=== PATIENT | male | born 1950 | race Caucasian/White ===

== ENCOUNTER 2024-10-13 09:38 | Outpatient (AMB) | payer MEDICARE, SELFPAY ==
--- NOTE | 2024-10-13 09:51 | XR_ITS ---
Examination: Bilateral knees 2 views Right lateral knee left lateral knee 2 views Right axial knee left axial knee 2 views TECHNIQUE: Bilateral AP knees standing single view, bilateral PA knees standing single view flexion Standing right lateral knee left lateral knee 2 views Right axial knee left axial knee 2 views total 6 views Date and time: October 13, 2024 1031 hours INDICATIONS: Bilateral knee pain 3 years worse in the left knee, history left knee infections FINDINGS: Prominent osteopenia Severe narrowing [id number] medial joint space left knee Advanced osteoarthritis left patellofemoral joint Moderate narrowing medial joint space right knee Significant osteoarthritis lateral and right patellofemoral joints No fractures IMPRESSION: Severe narrowing [id number] medial joint space left knee Advanced osteoarthritis left patellofemoral joint Moderate narrowing medial joint space right knee Significant osteoarthritis lateral and right patellofemoral joints
--- NOTE | 2024-10-13 09:54 | PD.ORTHCLVIS ---
Vital signs 10/13/24 09:59 Height 1.68 m Height Method Stated Weight 81.873 kg Weight Measurement Method Standing Scale BMI 29.1 BP 152/76 H Blood Pressure Source Automatic Cuff Blood Pressure Location Left Upper Arm Position Sitting Respiration 18 Pulse 64 Pulse Source Monitor Temp 97.3 F Temp Source Temporal Artery Scan Pulse Oximetry (%) 96 Oxygen Delivery Method Room Air Med/Allergies Allergies & Medications Allergies No Known Allergies Allergy (Verified 10/13/24 10:00) Medication Reconciliation acetaminophen 500 mg/15 mL oral liquid 500 mg PO QID PRN 10/13/24 [History Confirmed 10/13/24] aspirin 81 mg tablet 81 mg PO QDAY 10/13/24 [History Confirmed 10/13/24] atorvastatin 80 mg tablet 80 mg PO QDAY 10/13/24 [History Confirmed 10/13/24] clopidogrel 75 mg tablet 75 mg PO QDAY 10/13/24 [History Confirmed 10/13/24] diclofenac sodium 1 % topical gel 2 g topical QID 10/13/24 [History Confirmed 10/13/24] isosorbide dinitrate 30 mg tablet 30 mg PO BID 10/13/24 [History Confirmed 10/13/24] lisinopril 30 mg tablet 30 mg PO QDAY 10/13/24 [History Confirmed 10/13/24] meloxicam 7.5 mg tablet 7.5 mg PO QDAY #45 tabs 10/13/24 [Rx] metoprolol tartrate 50 mg tablet 50 mg PO QDAY 10/13/24 [History Confirmed 10/13/24] semaglutide 0.25 mg or 0.5 mg (2 mg/3 mL) subcutaneous pen injector (Ozempic) 0.25 mg subcut QWEEK 10/13/24 [History Confirmed 10/13/24] Exam Exam Patient is in no acute distress and is cooperative with the examination today. Breathing is nonlabored. In no respiratory distress. Bilateral extremities were evaluated and demonstrates sensation intact to light touch. Palpable pedal pulses are present. No significant edema is present. Bilateral hips were examined. The patient has no pain with log roll of the hips. Internal rotation to 30 degrees and external rotation to 30 degrees is painless. Negative FADIR. The left knee was examined. The left knee is in varus alignment. Range of motion from 0-115 degrees. Knee is stable to varus and valgus as well as AP translation with <5mm. Patient has a negative McMurrays. There is no pain with patellofemoral compression and no crepitus noted. The knee is tender to palpation medially. The right knee was also examined. The right knee is in varus alignment. Range of motion from 0-120 degrees. Knee is stable to varus and valgus as well as AP translation with <5mm. Patient has a negative McMurrays. There is no pain with patellofemoral compression and no crepitus noted. The knee is tender to palpation medially. Assessment and Plan Problem List (1) Arthritis of both knees: Status: Acute Plan: Patient is a pleasant 74-year-old male with bilateral knee pain and bilateral knee arthritis. We discussed different treatment options. He has tried 3 injections with minimal relief. We will need weightbearing x-rays but he has failed conservative treatment at this time. Will send in meloxicam. Will likely discuss total knee replacement at this visit. We will see him back after he gets x-rays Advanced Care Planning Discussion Advance care planning discussed with:: patient Office Procedures GNS Level of Care Nursing/Assessment Patient Status: Initial/New Patient Nursing Assessment/Reassesment: Medication Reconciliation, Update PMH in EMR and Vital Signs Coordination of Care: Complex Care and Chronic Disease 1-5, Education Complex Pt/Fam, Consent,records obtained, informed consent, 1 Ins Authorization, Lab and Imaging orders, Results/Orders obtained and Staff clarify orders Special Needs: Language special needs New Patient Charge New Patient Point Assignment: 1124 New Patient Point Charge: GENERAL MAINTENANCE TECHNICIAN Level 4 ([id number]) MA Intake Visit Data Collection New Patient or Established: New Patient (never been to [facility]) Reason for Visit:: BILATERAL KNEE PAIN Seen by Clinical Staff ONLY (RN/MA): No Wardrobe Specialist Required: Yes PCP or OBGYN visit in last 3 months: Yes Hx Now: No Do You Feel Safe at Home: Yes Authorities Contacted: N/A Questionairres Past Medical History Past Medical History Have you ever been diagnosed with any of the following: Respiratory Problems Smoking: No Smoking Exposure: No Subjective Visit Visit for: new patient and knee Immunization / Flu Flu Vaccine in the Last 12 Months: Yes Flu Vaccine Exclusion Criteria: Already Received History of Present Illness Chief complaint: bl knee pain Patient is a pleasant 74yo male with bilateral knee pain and bilateral knee osteoarthritis. The knee pain has been affecting his quality of life and happiness. He is using a cane to help walk. He has had 3 injections in the past and they do work. He is seeking a more permanent solution as the injections did not provide complete relief. Pain Pain level (0-10): 10 Pain duration: WITH MOVEMENT Pain location: inside (medial), outside (lateral), anterior and posterior Pain quality: sharp, dull and aching Pain timing: increases with activity and stairs Associated signs & symptoms: numbness and weakness Ambulatory data Ambulatory device: cane Treatments Number of previous injections: 3 Improvement with previous injections: Yes Improvement with PT: No Improvement with NSAIDS: no Review of Systems Review of Systems: All systems negative unless otherwise noted in HPI.
[2024-10-13 09:59] VITALS: BP 152/76; PULSE 64; RESP 18; TEMP 36.3; O2SAT 96; BMI 29.1
== END 2024-10-13 10:12 | disposition home or self-care (01) ==
LOC: HODSRG 09:38
PROVIDERS: PCP Nurse Practitioner; Referring Provider Nurse Practitioner; Supervising Provider Orthopaedic Surgery Adult Reconstructive Orthopaedic Surgery; Visit Provider Orthopaedic Surgery Adult Reconstructive Orthopaedic Surgery
DX: M17.0 Bilateral primary osteoarthritis of knee (principal); M25.562 Pain in left knee; M25.561 Pain in right knee
CPT/HCPCS: 73564; 99204; G0463

== ENCOUNTER 2024-10-29 13:22 | Outpatient (AMB) | payer MEDICARE, SELFPAY ==
--- NOTE | 2024-10-29 14:04 | ORTHONT_ITS ---
Vital signs 10/29/24 14:06 Height 1.68 m Height Method Stated Weight 82.27 kg Weight Measurement Method Standing Scale BMI 29.1 BP 157/72 H Blood Pressure Source Automatic Cuff Blood Pressure Location Left Upper Arm Position Sitting Respiration 18 Pulse 66 Pulse Source Monitor Temp 98.1 F Temp Source Temporal Artery Scan Pulse Oximetry (%) 95 Oxygen Delivery Method Room Air Med/Allergies Allergies & Medications Allergies No Known Allergies Allergy (Verified 10/29/24 14:06) Medication Reconciliation acetaminophen 500 mg/15 mL oral liquid 500 mg PO QID PRN 10/13/24 [History Confirmed 10/29/24] aspirin 81 mg tablet 81 mg PO QDAY 10/13/24 [History Confirmed 10/29/24] atorvastatin 80 mg tablet 80 mg PO QDAY 10/13/24 [History Confirmed 10/29/24] clopidogrel 75 mg tablet 75 mg PO QDAY 10/13/24 [History Confirmed 10/29/24] diclofenac sodium 1 % topical gel 2 g topical QID 10/13/24 [History Confirmed 10/29/24] isosorbide dinitrate 30 mg tablet 30 mg PO BID 10/13/24 [History Confirmed 10/29/24] lisinopril 30 mg tablet 30 mg PO QDAY 10/13/24 [History Confirmed 10/29/24] meloxicam 7.5 mg tablet 7.5 mg PO QDAY #45 tabs 10/13/24 [Rx Confirmed 10/29/24] metoprolol tartrate 50 mg tablet 50 mg PO QDAY 10/13/24 [History Confirmed 10/29/24] semaglutide 0.25 mg or 0.5 mg (2 mg/3 mL) subcutaneous pen injector (Ozempic) 0.25 mg subcut QWEEK 10/13/24 [History Confirmed 10/29/24] Exam Exam Patient is in no acute distress and is cooperative with the examination today. Breathing is nonlabored. In no respiratory distress. Bilateral extremities were evaluated and demonstrates sensation intact to light touch. Palpable pedal pulses are present. No significant edema is present. Bilateral hips were examined. The patient has no pain with log roll of the hips. Internal rotation to 30 degrees and external rotation to 30 degrees is painless. Negative FADIR. The left knee was examined. The left knee is in varus alignment. Range of motion from 0-115 degrees. Knee is stable to varus and valgus as well as AP translation with <5mm. Patient has a negative McMurrays. There is no pain with patellofemoral compression and no crepitus noted. The knee is tender to palpation medially. The right knee was also examined. The right knee is in varus alignment. Range of motion from 0-120 degrees. Knee is stable to varus and valgus as well as AP translation with <5mm. Patient has a negative McMurrays. There is no pain with patellofemoral compression and no crepitus noted. The knee is tender to palpation medially. Xrays demonstrate severe arthritis on the left. It is bone on bone with complete obliteration of the medial joint space Assessment and Plan Problem List (1) Arthritis of both knees: Status: Acute Plan: Patient is a pleasant 74-year-old male with bilateral knee pain and bilateral knee arthritis. We discussed different treatment options. He has tried 3 injections with minimal relief. He reports he wants new knee injections today. We discussed total knee replacement he like to continue with the injections for now Recommend knee cortisone injections as patient would like to proceed with conservative treatment at this time. The risks and benefits of the procedure were reviewed with the patient and patient gave verbal consent to continue with the procedure. Procedure: performed by Dr. Siegel Using sterile technique the Bilateral knees were thoroughly prepped with alcohol, and approximately 1 cc of Kenalog 40 mg/mL and 4 cc of 1% lidocaine was injected into each knee without resistance into the medial tibial femoral joint space. The patient tolerated the procedure. Advanced Care Planning Discussion Advance care planning discussed with:: patient Office Procedures GNS Level of Care Nursing/Assessment Patient Status: Established Patient Nursing Assessment/Reassesment: Medication Reconciliation, Update PMH in EMR and Vital Signs Coordination of Care: Complex Care and Chronic Disease 1-5, Education Complex Pt/Fam, Consent,records obtained, informed consent, Results/Orders obtained and Staff clarify orders Special Needs: Language special needs Established Patient Charge Established Patient Point Assignment: 95 Established Patient Point Charge: EP Level 3 (80-115) Surgical Proc/IM SQ injection Major Surgical Procedure: Yes (BILATERAL KNEE INJ) Medication Given Medication Given Medication Given: Yes Documented Dose Given: 8 Route: Infiitration Medication Given Medication Given Medication Given: Yes Documented Dose Given: 2 Route: Infiitration Office Meds Xylocaine 10 mg/mL (1 %) injection solution Performing Provider: Mehdi Siegel MD Performing Location: [facility] Administered by: Mehdi Siegel MD on 10/29/24 14:38 Dose Route Admin Location Dispensed Lot Number Expiration Date [facility] Hand Flesher 40 mL Infiltration 40 mL [id number] 01/13/28 87225-227-55 [employer] triamcinolone acetonide 40 mg/mL suspension for injection Performing Provider: Mehdi Siegel MD Performing Location: [facility] Administered by: Mehdi Siegel MD on 10/29/24 14:38 Dose Route Admin Location Dispensed Lot Number Expiration Date [facility] Hand Flesher 80 mg intra-articular 2 mL [id number] 05/14/26 40252-057-11 SHUBHAM SHERWOOD MA Intake Visit Data Collection New Patient or Established: Established Patient (seen at [facility] within 3 years) Reason for Visit:: XRYA RESULTS Seen by Clinical Staff ONLY (RN/MA): No Sand Hauler Required: Yes PCP or OBGYN visit in last 3 months: Yes Hx Now: No Do You Feel Safe at Home: Yes Authorities Contacted: N/A Questionairres Past Medical History Past Medical History Have you ever been diagnosed with any of the following: Respiratory Problems Smoking: No Smoking Exposure: No Subjective Visit Visit for: new patient, follow up visit, knee and x-rays Immunization / Flu Flu Vaccine in the Last 12 Months: No Flu Vaccine Exclusion Criteria: No Exclusion Criteria and Already Received History of Present Illness Chief complaint: bl knee pain Patient is a pleasant 74yo male with bilateral knee pain and bilateral knee osteoarthritis. The knee pain has been affecting his quality of life and happiness. He is using a cane to help walk. He has had 3 injections in the past and they do work. He is seeking a more permanent solution as the injections did not provide complete relief. Pain Pain level (0-10): 6 Pain duration: ALL DAY Pain location: inside (medial), outside (lateral), anterior and posterior Pain quality: sharp, dull and aching Pain timing: night, increases with activity and stairs Associated signs & symptoms: numbness and weakness Ambulatory data Ambulatory device: cane and none Treatments Number of previous injections: 3 Improvement with previous injections: No Improvement with PT: No Improvement with NSAIDS: no Review of Systems Review of Systems: All systems negative unless otherwise noted in HPI.
[2024-10-29 14:06] VITALS: BP 157/72; PULSE 66; RESP 18; TEMP 36.7; O2SAT 95; BMI 29.1
== END 2024-10-29 14:40 | disposition home or self-care (01) ==
LOC: HODSRG 13:22
PROVIDERS: PCP Nurse Practitioner; Referring Provider Nurse Practitioner; Supervising Provider Orthopaedic Surgery Adult Reconstructive Orthopaedic Surgery; Visit Provider Orthopaedic Surgery Adult Reconstructive Orthopaedic Surgery
DX: M17.0 Bilateral primary osteoarthritis of knee (principal); M25.562 Pain in left knee; M25.561 Pain in right knee
CPT/HCPCS: 20610; 99213; J3301; J3490; G0463

== ENCOUNTER 2025-02-05 08:52 | Outpatient (AMB) | payer MEDICARE, SELFPAY ==
--- NOTE | 2025-02-05 09:09 | PD.ORTHCLVIS ---
Vital signs 02/05/25 09:11 Height 1.68 m Height Method Stated Weight 82.667 kg Weight Measurement Method Standing Scale BMI 29.2 BP 109/66 Blood Pressure Source Automatic Cuff Blood Pressure Location Left Upper Arm Position Sitting Respiration 19 Pulse 72 Pulse Source Monitor Temp 97.2 F Temp Source Temporal Artery Scan Pulse Oximetry (%) 95 Oxygen Delivery Method Room Air Med/Allergies Allergies & Medications Allergies No Known Allergies Allergy (Verified 02/05/25 09:12) Medication Reconciliation acetaminophen 500 mg/15 mL oral liquid 500 mg PO QID PRN 10/13/24 [History Confirmed 02/05/25] aspirin 81 mg tablet 81 mg PO QDAY 10/13/24 [History Confirmed 02/05/25] atorvastatin 80 mg tablet 80 mg PO QDAY 10/13/24 [History Confirmed 02/05/25] clopidogrel 75 mg tablet 75 mg PO QDAY 10/13/24 [History Confirmed 02/05/25] diclofenac sodium 1 % topical gel 2 g topical QID 10/13/24 [History Confirmed 02/05/25] isosorbide dinitrate 30 mg tablet 30 mg PO BID 10/13/24 [History Confirmed 02/05/25] lisinopril 30 mg tablet 30 mg PO QDAY 10/13/24 [History Confirmed 02/05/25] meloxicam 7.5 mg tablet 7.5 mg PO QDAY #45 tabs 10/13/24 [Rx Confirmed 02/05/25] metoprolol tartrate 50 mg tablet 50 mg PO QDAY 10/13/24 [History Confirmed 02/05/25] semaglutide 0.25 mg or 0.5 mg (2 mg/3 mL) subcutaneous pen injector (Ozempic) 0.25 mg subcut QWEEK 10/13/24 [History Confirmed 02/05/25] Exam Exam Patient is in no acute distress and is cooperative with the examination today. Breathing is nonlabored. In no respiratory distress. Bilateral extremities were evaluated and demonstrates sensation intact to light touch. Palpable pedal pulses are present. No significant edema is present. Bilateral hips were examined. The patient has no pain with log roll of the hips. Internal rotation to 30 degrees and external rotation to 30 degrees is painless. Negative FADIR. The left knee was examined. The left knee is in varus alignment. Range of motion from 0-115 degrees. Knee is stable to varus and valgus as well as AP translation with <5mm. Patient has a negative McMurrays. There is no pain with patellofemoral compression and no crepitus noted. The knee is tender to palpation medially. The right knee was also examined. The right knee is in varus alignment. Range of motion from 0-120 degrees. Knee is stable to varus and valgus as well as AP translation with <5mm. Patient has a negative McMurrays. There is no pain with patellofemoral compression and no crepitus noted. The knee is tender to palpation medially. Xrays demonstrate severe arthritis on the left. It is bone on bone with complete obliteration of the medial joint space Assessment and Plan Problem List (1) Arthritis of both knees: Status: Acute Plan: Patient is a pleasant 74-year-old male with bilateral knee pain and bilateral knee arthritis. We discussed different treatment options. He has tried 3 injections with minimal relief. He reports he wants new knee injections today. We discussed total knee replacement he like to continue with the injections for now Recommend knee cortisone injection as patient would like to proceed with conservative treatment at this time. The risks and benefits of the procedure were reviewed with the patient and patient gave verbal consent to continue with the procedure. Procedure: performed by Dr. Siegel Using sterile technique the Right knee was thoroughly prepped with alcohol, and approximately 1 cc of Depo-Medrol 80mg/mL and 4 cc of 0.2% ropivacaine was injected without resistance into the medial tibial femoral joint space. The patient tolerated the procedure. Recommend knee cortisone injection as patient would like to proceed with conservative treatment at this time. The risks and benefits of the procedure were reviewed with the patient and patient gave verbal consent to continue with the procedure. Procedure: performed by Dr. Siegel Using sterile technique the leftknee was thoroughly prepped with alcohol, and approximately 1 cc of Depo-Medrol 80mg/mL and 4 cc of 0.2% ropivacaine was injected without resistance into the medial tibial femoral joint space. The patient tolerated the procedure. Advanced Care Planning Discussion Advance care planning discussed with:: patient Office Procedures GNS Level of Care Nursing/Assessment Patient Status: Established Patient Nursing Assessment/Reassesment: Medication Reconciliation, Update PMH in EMR and Vital Signs Coordination of Care: Complex Care and Chronic Disease 1-5, Education Complex Pt/Fam, Consent,records obtained, informed consent, Results/Orders obtained and Staff clarify orders Special Needs: Language special needs Established Patient Charge Established Patient Point Assignment: 95 Established Patient Point Charge: EP Level 3 (80-115) Surgical Proc/IM SQ injection Minor Surgical Procedure: Yes (BILATERAL KNEE INJECTION) MA Intake Visit Data Collection New Patient or Established: Established Patient (seen at [facility] within 3 years) Reason for Visit:: BL KNEE INJECTION Seen by Clinical Staff ONLY (RN/MA): No Composing Room Machinist Required: Yes PCP or OBGYN visit in last 3 months: Yes Hx Now: No Do You Feel Safe at Home: Yes Authorities Contacted: N/A Questionairres Past Medical History Past Medical History Have you ever been diagnosed with any of the following: Respiratory Problems Smoking: No Smoking Exposure: No Subjective Visit Visit for: follow up visit, knee (BILATERAL ) and injections Immunization / Flu Flu Vaccine in the Last 12 Months: No Flu Vaccine Exclusion Criteria: No Exclusion Criteria and Already Received History of Present Illness Chief complaint: bl knee INJECTION Patient is a pleasant 74yo male with bilateral knee pain and bilateral knee osteoarthritis. The knee pain has been affecting his quality of life and happiness. He is using a cane to help walk. He has had 3 injections in the past and they do work. He is seeking a more permanent solution as the injections did not provide complete relief. However, the last injection did provide good relief and he thus would like another round today Pain Pain level (0-10): 6 Pain duration: ALL DAY Pain location: inside (medial), outside (lateral), anterior and posterior Pain quality: sharp, dull and aching Pain timing: night, increases with activity and stairs Associated signs & symptoms: numbness and weakness Ambulatory data Ambulatory device: cane and none Treatments Number of previous injections: 3 Improvement with previous injections: No Improvement with PT: No Improvement with NSAIDS: no Review of Systems Review of Systems: All systems negative unless otherwise noted in HPI.
[2025-02-05 09:11] VITALS: BP 109/66; PULSE 72; RESP 19; TEMP 36.2; O2SAT 95; BMI 29.2
[2025-02-05 10:26] VITALS: BP 109/66; PULSE 72; RESP 19; TEMP 36.2; O2SAT 95
--- NOTE | 2025-02-05 10:26 | PD.ORTHCLVIS ---
Vital signs 02/05/25 09:11 02/05/25 10:26 Height 1.68 m Height Method Stated Weight 82.667 kg Weight Measurement Method Standing Scale BMI 29.2 BP 109/66 109/66 Blood Pressure Source Automatic Cuff Blood Pressure Location Left Upper Arm Position Sitting Respiration 19 19 Pulse 72 72 Pulse Source Monitor Temp 97.2 F 97.2 F Temp Source Temporal Artery Scan Pulse Oximetry (%) 95 95 Oxygen Delivery Method Room Air Med/Allergies Allergies & Medications Allergies No Known Allergies Allergy (Verified 02/05/25 09:12) Medication Reconciliation acetaminophen 500 mg/15 mL oral liquid 500 mg PO QID PRN 10/13/24 [History Confirmed 02/05/25] aspirin 81 mg tablet 81 mg PO QDAY 10/13/24 [History Confirmed 02/05/25] atorvastatin 80 mg tablet 80 mg PO QDAY 10/13/24 [History Confirmed 02/05/25] clopidogrel 75 mg tablet 75 mg PO QDAY 10/13/24 [History Confirmed 02/05/25] diclofenac sodium 1 % topical gel 2 g topical QID 10/13/24 [History Confirmed 02/05/25] isosorbide dinitrate 30 mg tablet 30 mg PO BID 10/13/24 [History Confirmed 02/05/25] lisinopril 30 mg tablet 30 mg PO QDAY 10/13/24 [History Confirmed 02/05/25] meloxicam 7.5 mg tablet 7.5 mg PO QDAY #45 tabs 10/13/24 [Rx Confirmed 02/05/25] metoprolol tartrate 50 mg tablet 50 mg PO QDAY 10/13/24 [History Confirmed 02/05/25] semaglutide 0.25 mg or 0.5 mg (2 mg/3 mL) subcutaneous pen injector (Ozempic) 0.25 mg subcut QWEEK 10/13/24 [History Confirmed 02/05/25] Assessment and Plan Problem List (1) Arthritis of both knees: Status: Acute Advanced Care Planning Discussion Advance care planning discussed with:: patient Office Procedures GNS Level of Care Nursing/Assessment Patient Status: Established Patient Nursing Assessment/Reassesment: Medication Reconciliation, Update PMH in EMR and Vital Signs Coordination of Care: Complex Care and Chronic Disease 1-5, Education Complex Pt/Fam, Consent,records obtained, informed consent, Results/Orders obtained and Staff clarify orders Special Needs: Language special needs Established Patient Charge Established Patient Point Assignment: 95 Established Patient Point Charge: EP Level 3 (80-115) Surgical Proc/IM SQ injection Minor Surgical Procedure: Yes (BILATERAL KNEE INJECTION) Medication Given Medication Given Medication Given: Yes Documented Dose Given: 2 Route: Infiitration Medication Given Medication Given Medication Given: Yes Documented Dose Given: 8 Route: Infiitration Office Meds methylprednisolone acetate 80 mg/mL suspension for injection Performing Provider: Mehdi Siegel MD Performing Location: [facility] Administered by: Mehdi Siegel MD on 02/05/25 10:26 Dose Route Admin Location Dispensed Lot Number Expiration Date Package [facility] [employer] Finisher 160 mg intra-articular KNEE 2 mL [id number] 03/14/26 [address]-7 [id number] [employer] ropivacaine (PF) 2 mg/mL (0.2 %) injection solution Performing Provider: Mehdi Siegel MD Performing Location: [facility] Administered by: Mehdi Siegel MD on 02/05/25 10:26 Dose Route Admin Location Dispensed Lot Number Expiration Date Package [facility] [employer] Finisher 40 mL Infiltration KNEE 40 mL [id number] 03/14/26 91417-243-08 [id number] [facility] Questionairres Past Medical History Past Medical History Have you ever been diagnosed with any of the following: Respiratory Problems Smoking: No Smoking Exposure: No Subjective Immunization / Flu Flu Vaccine in the Last 12 Months: Yes Flu Vaccine Exclusion Criteria: Already Received Review of Systems Review of Systems: All systems negative unless otherwise noted in HPI.
== END 2025-02-05 09:24 | disposition home or self-care (01) ==
LOC: HODSRG 08:52
PROVIDERS: PCP Nurse Practitioner; Referring Provider Nurse Practitioner; Supervising Provider Orthopaedic Surgery Adult Reconstructive Orthopaedic Surgery; Visit Provider Orthopaedic Surgery Adult Reconstructive Orthopaedic Surgery
DX: M25.562 Pain in left knee (principal); M25.561 Pain in right knee; M17.0 Bilateral primary osteoarthritis of knee
CPT/HCPCS: 20610; 99213; J1010; J2795; G0463